=== PATIENT | male | born 1980 | race Caucasian/White ===

== ENCOUNTER 2017-10-22 18:50 | Emergency (ER) | payer SELFPAY | END 2017-10-22 22:40 | disposition home or self-care (01) | LOC: D.ER 18:50 | DX: S16.1XXA Strain of muscle, fascia and tendon at neck level, initial encounter (principal); V43.52XA Car driver injured in collision with other type car in traffic accident, initial encounter; Y93.89 Activity, other specified; Y92.410 Unspecified street and highway as the place of occurrence of the external cause; S39.012A Strain of muscle, fascia and tendon of lower back, initial encounter; S20.219A Contusion of unspecified front wall of thorax, initial encounter; I10 Essential (primary) hypertension; Z85.47 Personal history of malignant neoplasm of testis ==

== ENCOUNTER 2018-06-05 16:25 | Observation (INO) | payer OTHER ==
[~2018-06-05] VITALS: Ht 175.3 cm; Wt 76.2 kg
[2018-06-05 17:03] LABS: BASOPHILS 0.3 % (0-2); EOSINOPHILS 0.9 % (0-7); HEMATOCRIT 28.8 % (42.0-54.0); HEMOGLOBIN 10.3 g/dL (13.5-17.5); IMMATURE GRANULOCYTES 0.4 % (0-5); LYMPHOCYTES 17.2 % (15-50); MCH 31.7 pg (26.0-34.0); MCHC 35.8 g/dL (31.0-37.0); MCV 88.6 fL (80.0-100.0); MEAN PLATELET VOLUME 8.8 fL (7.4-10.4); MONOCYTES 7.9 % (2-11); NEUTROPHILS 73.3 % (40-80); PLATELET COUNT 264 10x3/uL (130-400); RBC 3.25 10x6/uL (4.20-6.10); RDW 12.8 % (11.5-14.5)
[2018-06-05 17:09] LABS: APPEARANCE CLEAR (CLEAR); BILIRUBIN NEGATIVE (NEGATIVE); COLOR YELLOW (YELLOW); GLUCOSE 1000 mg/dL (NEGATIVE); KETONE NEGATIVE (NEGATIVE); NITRITE NEGATIVE (NEGATIVE); PROTEIN NEGATIVE (NEGATIVE); UROBILINOGEN NORMAL (NORMAL)
[2018-06-05 17:21] LABS: ALBUMIN 3.3 g/dL (3.4-5.0); ALKALINE PHOSPHATASE 51 U/L (46-116); ALT (SGPT) 36 U/L (10-68); BILIRUBIN - TOTAL 0.44 mg/dL (0.2-1.3); CALC OSMOLALITY 274 mosm/kg (275-300); CALCIUM 8.2 mg/dL (8.5-10.1); CARBON DIOXIDE 27.9 mmol/L (21.0-32.0); CHLORIDE - SERUM 102 mmol/L (98-107); CREATININE - SERUM 1.1 mg/dL (0.6-1.3); GLUCOSE 116 mg/dL (74-106); POTASSIUM - SERUM 4.2 mmol/L (3.5-5.1); PROTEIN - SERUM 6.1 g/dL (6.4-8.2); SODIUM 134 mmol/L (136-145); UREA NITROGEN 29 mg/dL (7-18); eGFR NON AFRICAN AMERICAN 79 mL/min (90-120)
[2018-06-05 18:13] LABS: INR 1.05 (0.85-1.17); PROTIME 13.1 SECONDS (11.6-15.0)
[2018-06-05 20:56] VITALS: BP 121/56
[2018-06-05 22:14] VITALS: BP 113/72
[2018-06-05 23:52] LABS: HEMATOCRIT 26.4 % (42.0-54.0); HEMOGLOBIN 9.6 g/dL (13.5-17.5)
[2018-06-06] VITALS (10 sets, daily range): BP systolic 98–114; BP diastolic 55–69; Ht 175.3 cm; Wt 76.2 kg
[2018-06-06 06:26] LABS: BASOPHILS 0.2 % (0-2); EOSINOPHILS 2.1 % (0-7); HEMATOCRIT 27.5 % (42.0-54.0); HEMOGLOBIN 9.6 g/dL (13.5-17.5); IMMATURE GRANULOCYTES 0.5 % (0-5); LYMPHOCYTES 26.2 % (15-50); MCH 31.4 pg (26.0-34.0); MCHC 34.9 g/dL (31.0-37.0); MCV 89.9 fL (80.0-100.0); MEAN PLATELET VOLUME 9.1 fL (7.4-10.4); MONOCYTES 7.9 % (2-11); NEUTROPHILS 63.1 % (40-80); RBC 3.06 10x6/uL (4.20-6.10); RDW 13.1 % (11.5-14.5)
[2018-06-06 06:38] LABS: PLATELET COUNT 200 10x3/uL (130-400); WBC 6.1 10x3/uL (4.8-10.8)
[2018-06-06 06:41] LABS: CALC OSMOLALITY 280 mosm/kg (275-300); CALCIUM 7.5 mg/dL (8.5-10.1); CARBON DIOXIDE 28.6 mmol/L (21.0-32.0); CHLORIDE - SERUM 107 mmol/L (98-107); CREATININE - SERUM 0.9 mg/dL (0.6-1.3); GLUCOSE 96 mg/dL (74-106); POTASSIUM - SERUM 3.9 mmol/L (3.5-5.1); SODIUM 139 mmol/L (136-145); eGFR NON AFRICAN AMERICAN > 90 mL/min (90-120)
[2018-06-06 06:45] LABS: UREA NITROGEN 21 mg/dL (7-18)
[2018-06-06 07:57] LABS: INR 1.06 (0.85-1.17); PROTIME 13.2 SECONDS (11.6-15.0)
[2018-06-06 14:54] LABS: HEMATOCRIT 30.6 % (42.0-54.0); HEMOGLOBIN 10.6 g/dL (13.5-17.5)
[2018-06-06] MEDS ORDERED: OMEPRAZOLE20 M1 PO (15:34)
[2018-06-06] MEDS ORDERED: CARAFATE1 G/10 ML PO (15:35)
[2018-06-06] MEDS ORDERED: PEPCID40 MG PO (15:35)
== END 2018-06-06 16:55 | disposition home or self-care (01) ==
LOC: D.ER 16:25 → D.MS 22:05 → OBSVTIME 22:05 → D.MS 22:05
PROVIDERS: Emergency Medicine; Family Medicine; Internal Medicine Gastroenterology
DX: K29.81 Duodenitis with bleeding (principal); D62 Acute posthemorrhagic anemia; F17.200 Nicotine dependence, unspecified, uncomplicated; K26.9 Duodenal ulcer, unspecified as acute or chronic, without hemorrhage or perforation; K25.9 Gastric ulcer, unspecified as acute or chronic, without hemorrhage or perforation; K21.0 Gastro-esophageal reflux disease with esophagitis; E86.0 Dehydration

== ENCOUNTER → 2018-08-28 11:06 | Outpatient (CLI) | payer OTHER ==
[2018-06-06 09:52] VITALS: BMI 24.8
[~2018-08-28 11:06] MED LIST: CARAFATE1 G/10 ML PO; OMEPRAZOLE20 M1 PO; PEPCID40 MG PO
[2018-08-29 07:25] LABS: HCG-QUANTITATIVE(TUMOR MARKER) <1 mIU/mL (0-3)
[2018-08-29 11:16] LABS: ALPHA FETOPROTEIN -(TUMOR MRK) 9.3 ng/mL (0.0-8.3)
== END | disposition home or self-care (01) ==
LOC: D.LAB 11:06
PROVIDERS: Family Medicine
DX: C62.92 Malignant neoplasm of left testis, unspecified whether descended or undescended (principal)

== ENCOUNTER → 2018-09-01 10:30 | Outpatient (CLI) | payer OTHER ==
[2018-06-06 09:52] VITALS: BMI 24.8
== END | disposition home or self-care (01) ==
LOC: D.CT 10:30
DX: C62.92 Malignant neoplasm of left testis, unspecified whether descended or undescended (principal)

== ENCOUNTER → 2018-12-14 08:19 | Outpatient (CLI) | payer OTHER ==
[2018-06-06 09:52] VITALS: BMI 24.8
== END | disposition home or self-care (01) ==
LOC: D.US 08:00
PROVIDERS: ATTEND Family Medicine
DX: R60.0 Localized edema (principal)

== ENCOUNTER 2019-03-19 07:30 | Inpatient (IN) | payer OTHER ==
[2019-03-16 15:45] LABS: HEMATOCRIT 40.5 % (42.0-54.0); HEMOGLOBIN 13.9 g/dL (13.5-17.5); MCHC 34.3 g/dL (31.0-37.0); MCV 84.4 fL (80.0-100.0); MEAN PLATELET VOLUME 8.8 fL (7.4-10.4); RBC 4.8 10x6/uL (4.20-6.10); RDW 14.1 % (11.5-14.5); WBC 6.7 10x3/uL (4.8-10.8)
[2019-03-16 15:48] LABS: APPEARANCE CLEAR (CLEAR); BILIRUBIN NEGATIVE (NEGATIVE); COLOR YELLOW (YELLOW); GLUCOSE NEGATIVE (NEGATIVE); KETONE NEGATIVE (NEGATIVE); NITRITE NEGATIVE (NEGATIVE); PROTEIN NEGATIVE (NEGATIVE); UROBILINOGEN NORMAL (NORMAL)
[2019-03-16 16:01] LABS: PROTIME 12.7 SECONDS (11.6-15.0)
[2019-03-16 16:05] LABS: ALBUMIN 3.9 g/dL (3.4-5.0); ALKALINE PHOSPHATASE 69 U/L (46-116); ALT (SGPT) 33 U/L (10-68); BILIRUBIN - TOTAL 0.76 mg/dL (0.2-1.3); CALC OSMOLALITY 282 mosm/kg (275-300); CALCIUM 8.8 mg/dL (8.5-10.1); CARBON DIOXIDE 29.8 mmol/L (21.0-32.0); CHLORIDE - SERUM 104 mmol/L (98-107); GLUCOSE 98 mg/dL (74-106); POTASSIUM - SERUM 3.8 mmol/L (3.5-5.1); PROTEIN - SERUM 7.5 g/dL (6.4-8.2); SODIUM 142 mmol/L (136-145); UREA NITROGEN 13 mg/dL (7-18); eGFR NON AFRICAN AMERICAN 89 mL/min (90-120)
[~2019-03-19] VITALS: Ht 177.8 cm; Wt 81.5 kg
[2019-03-19] VITALS (13 sets, daily range): BP systolic 113–148; BP diastolic 59–90; BMI 24.4; BMI 25.8
--- NOTE | 2019-03-19 19:17 | NUR ---
PT ARRIVED TO CVICU ON BED WITH O.R STAFF AT BEDSIDE, REPORT RECEIVED, PT PLACED ON CVICU MONITORS, NSR ON CM, OTHER VSS, PT AAOx4, ANSWERES QUESTIONS, ON 3L/MIN HUMIDIFIED NC, LEFT IJ CVL C/D/I, STATED DISTAL PORT OF CVL IS OCCLUDED AND IS CAPPED OFF AND HAS CLAMP SECURED, OTHER LUMEN IS PATENT WITH MEDS INFUSING PER MAR/ORDERS, LEFT RADIAL ART-LINE AND CVP ZEROED ON CM DRSG C/DI, LEFT LATERAL CHEST CTx1 TO 20CM H20 SUCTION, NO LEAK NOTED, DRSG C/D/I, PT HAD DEL CASTILLO CATH REMOVED PRIOR TO COMING TO CVICU PER REQUEST, NO UOP NOTED SINCE REMOVAL, BILAT SCD AND VANESSA BANEGASE, THORACIC EPIDURAL PLACED IN O.R, DRSG C/D/I, WITH FENTANYL/ROPIVACAINE CONTINUOUS INFUSION SET AT 7ML/HR WITH WITH PRN 4ML q15MIN BOLUS PATIENT CONTROLED, WILL CONTINUE TO MONITOR
--- NOTE | 2019-03-19 19:21 | NUR ---
ABUNDIO REMOVED UPON COMPLETION OF CASE PER JAN HANSON
--- NOTE | 2019-03-19 20:00 | NUR ---
PT AND FAMILY AT BEDSIDE, UPDATE GIVEN, NO FURTHER AT THIS TIME VSS
[2019-03-20] VITALS (19 sets, daily range): BP systolic 99–133; BP diastolic 33–85; Ht 177.8 cm; Wt 81.5 kg
--- NOTE | 2019-03-20 | NUR ---
PT ASSISTED WITH REPOSITIONING TO USE URINAL, WARM BLANKET GIVEN TO PLACE OVER BLADDER AND WATER TURNED ON, PT UNABLE TO VOID AT THIS TIME, REPOSITIONED IN BED, VSS
--- NOTE | 2019-03-20 01:00 | NUR ---
PT ANXIOUS ABOUT NOT VOIDING, PT EXPRESSED THOUGHTS ABOUT DEL CASTILLO CATH IF CONTINUES TO HAVE DIFICULTY VOIDING BUT WOULD LIKE TO CONTINUE TRYING URINAL, QUESTIONS AND CONCERNS ANSWERED, WARM WASH TOWEL GIVEN PER REQUEST, NO FURTHER NEEDS AT THIS TIME, VSS
--- NOTE | 2019-03-20 01:30 | NUR ---
PT ABLE TO VOID IN URINAL, SATES HE FEELS RELEIF FROM BLADDER PRESSURE, TCDB COMPLETED, I/S 2500ML, VSS
--- NOTE | 2019-03-20 03:00 | NUR ---
REASSESSMENT COMPLETE SEE FLOW SHEET, NO ACUTE CHANGES NOTED, PT AAOx4, REPOSITIONED FOR COMFORT, NSR ON CM, OTHER VSS, WILL CONTINUE TO MONITOR
[2019-03-20 06:42] LABS: HEMATOCRIT 37.2 % (42.0-54.0); HEMOGLOBIN 12.7 g/dL (13.5-17.5); MCH 28.7 pg (26.0-34.0); MCHC 34.1 g/dL (31.0-37.0); MCV 84.2 fL (80.0-100.0); MEAN PLATELET VOLUME 8.9 fL (7.4-10.4); RBC 4.42 10x6/uL (4.20-6.10); RDW 14.2 % (11.5-14.5); WBC 12.3 10x3/uL (4.8-10.8)
[2019-03-20 06:45] LABS: ALBUMIN 3.4 g/dL (3.4-5.0); ALKALINE PHOSPHATASE 56 U/L (46-116); ALT (SGPT) 33 U/L (10-68); CALC OSMOLALITY 280 mosm/kg (275-300); CALCIUM 8.4 mg/dL (8.5-10.1); CARBON DIOXIDE 24.3 mmol/L (21.0-32.0); CHLORIDE - SERUM 104 mmol/L (98-107); GLUCOSE 120 mg/dL (74-106); PROTEIN - SERUM 6.8 g/dL (6.4-8.2); SODIUM 140 mmol/L (136-145); UREA NITROGEN 16 mg/dL (7-18); eGFR NON AFRICAN AMERICAN 89 mL/min (90-120)
--- NOTE | 2019-03-20 07:37 | NUR ---
CHG BATH WITH COMPLETE LINEN CHANGE WITH YELLOW GOWN, REPOSITIONED FOR COMFORT, VSS
--- NOTE | 2019-03-20 08:27 | NUR ---
DR BRAY AT THE PTS BEDSIDE. N.O. TO PULL OUT CHAR. DR BRAY PLACED THE CT TO WATER SEAL. ORDERS FOR CT. PT A LINE DC'D WITH NO HEMATOMA NOTED. DRESSING APPLIED. PT WENT DOWN FOR CT ON THE MONITOR. VSS AT THIS TIME.
--- NOTE | 2019-03-20 09:28 | NUR ---
PT COMPLAINED OF URINARY RETENTION. UNABLE TO VOID IN THE URINAL. PT ASSISTED TO THE BEDSIDE COMMODE AND HAD A SMALL BM AND VOIDED 380 ML OF CLEAR, YELLOW URINE. PT ASSISTED TO THE BEDSIDE CHAIR. WILL CONT POC.
--- NOTE | 2019-03-20 09:53 | NUR ---
TONI AYALA AT THE PTS BEDSIDE. SMALL PNUMOTHORAX NOTED. SHE PUT THE PT BACK ON SUCTION AND REPEAT CXR AT 1200.
--- NOTE | 2019-03-20 10:42 | NUR ---
DR BRAY IN THE PTS ROOM. UPDATED ON THE CHEST CT. OK TO PULL CENTRAL LINE.
--- NOTE | 2019-03-20 11:26 | OP ---
PATIENT NAME: DOLORES BE MEDICAL RECORD: [id number] :80 LOCATION:[id number] ADMISSION DATE:03/19/19 SURGEON: KEVIN BRAY MD DATE OF OPERATION: 03/19/2019 SURGEON: Kevin Bray MD ROTARY SHEAR CUTTER: Abimael Smith. PROCEDURE PERFORMED: 1. Right video-assisted thoracoscopic surgery. 2. Right thoracotomy, diagnostic. 3. Biopsy of intraparenchymal lymph node. 4. Bronchoscopy procedure. PREOPERATIVE DIAGNOSIS: Enlarging right lung mass. POSTOPERATIVE DIAGNOSIS: Benign lymph node. ANESTHESIA: General endotracheal anesthesia. ESTIMATED BLOOD LOSS: Minimal. COMPLICATIONS: None. SPECIMENS: Lymph node. CONDITION: Stable. DISPOSITION: ICU. OPERATIVE FINDINGS: 1. Thoracoscopy performed with complete fissures, but no evidence of scarring or retraction of the pleura to alert any site of intraparenchymal mass. 2. Small anterior thoracotomy, lung; upper, middle, and lower lobes sequentially grasped and palpated with 1 small lymph node intraparenchymally removed carefully with electrocautery and hemostasis insured sent and returned benign. 3. The thoracotomy was enlarged to allow direct hand palpation of the entire lung and careful palpation was performed for over 45 minutes with no palpable intraparenchymal lung masses in the patient with complete lung fissures and normal appearing lung parenchyma. 4. Negative bronchoscopy. PROCEDURE INDICATION: Enlarging lung mass with history of testicular cancer. DESCRIPTION OF PROCEDURE: The patient was brought to the operating suite. General anesthesia was obtained with a double lumen tube and the patient was placed in the left lateral decubitus position with appropriate padding including axillary roll. Right chest incision was made just behind the tip of the scapula and the scope was introduced visualizing the chest, then a second working port was made anteriorly at about the anterior axillary line and the long clamp was introduced and the lung was explored from the apex down the major fissure looking for the mass, which was in the major fissure in the upper lobe or just in the middle lobe and all the way down to the diaphragm. The lower lobe was also inspected, but no evidence of tumor was visualized. Therefore, the OPERATIVE REPORT [id number] DOLORES BE anterior incision was enlarged to about 10 cm under direct visualization. The lung was grasped and directly palpated with fingers. First the anterior portion of the upper lobe and the entire middle lobe and then the lower lobe along the diaphragmatic surface with one 5-mm lymph node intraparenchymally, carefully grasped and removed with the Bovie and hemostasis ensured. Once this returned benign, the anterior working site was doubled and a section of rib was removed. Direct palpation inside the parenchyma was performed and sequential palpation of each lobe from top to bottom, posterior to anteriorly was performed with no palpable masses, and no abnormalities noted. Lung was again grasped and fully visualized in all areas and then the area was irrigated. A chest tube was placed through the anterior working port. The wound was closed with #2 muscle layers, subcutaneous subcuticular. The posterior working port was closed with #1 muscle layer, subcutaneous and subcuticular. Lung was reinflated. The patient extubated to the CV ICU stable. TRANSINT:[id number] Voice Confirmation ID: [id number] DOCUMENT ID: [id number] KEVIN BRAY MD at 1126 CC: MARYSE COPE DO, DONATO GARDNER and BATOOL HOUSE MD [id number] DICTATION DATE: 03/19/19 1840 CENTRIFUGAL MACHINE TENDER: 03/19/19 2207 ADM IN [facility] [address] [place] [address]
--- NOTE | 2019-03-20 11:46 | NUR ---
IGNITION EXPERT CHANGED EPIDURAL BAG.
--- NOTE | 2019-03-20 12:55 | NUR ---
LEFT CVL LINE PULLED PER DR BRAY'S ORDERS. DRESSING APPLIED. PT TOLERATED WELL. WILL CONT POC.
--- NOTE | 2019-03-20 15:44 | NUR ---
ASSISTED THE PT WITH AMBULATING TO THE BATHROOM. NORMAL STEADY GAIT NOTED. PT HAD A SMALL BM BUT STATED IT WAS MAINLY GAS. PT STATED HE HAD ANOTHER LARGE VOID. UNABLE TO MEASURE THE AMOUNT OF VOID.
--- NOTE | 2019-03-20 17:24 | NUR ---
PT ASSISTED TO THE BR WHERE HE VOIDED WITH NO ISSUES. ASSISTED BACK TO HIS BEDSIDE CHAIR. VSS. MEAL TRAY PROVIDED FOR THE PT. PT CONT TO USE IS 10X'S/H PULLING ABOUT 3500. VERY STRONG COUGH NOTED. CALL LIGHT IN REACH. WILL CONT POC.
--- NOTE | 2019-03-20 19:00 | NUR ---
BEDSIDE SHIFT REPORT GIVEN BY DEPARTING RN. PT LAYING IN BED WATCHING TV. AAOX4. DENIES ANY PAIN AT THIS TIME. HS SNACK PROVIDED. FRESH ICE WATER PROVIDED. RT WRIST PIV NOTED AND INFUSING MD ORDERED MEDS PATENTLY. ZINACEF COMPLETE AT THIS TIME. RT LATERAL CHEST TUBE NOTED WITH BLOODY DRAINAGE, HOOKED TO 20 CM SUCTION. RLL CRACKLES HEARD. FREQUENT COUGHING NOTED WITH THICK DIALLO SECRETIONS. EPIDURAL NOTED, INSERTION SITE RIGHT UPPER BACK C/D/I. ASSESSMENT COMPLETE. NO SS OF DISTRESS. SAFETY MEASURES IN PLACE. CBIR.
--- NOTE | 2019-03-20 21:00 | NUR ---
USED CALL LIGHT TO ALERT NURSE. OOB TO BATHROOM WITH STANDBY ASSIST. 1 VOID NOTED. UPON ENTERING THE BED, PT C/O SHARP PAIN 10/[address] LOCATION. DRESSING REMAINS C/D/I. LUNG SOUNDS SAME PREVIOUS ASSESSMENT. GETTING STILL AND LAYING DOWN PAIN LESSONED TO 4/10. WILL CONTINUE TO MONITOR.
--- NOTE | 2019-03-20 21:49 | NUR ---
USED CALL LIGHT TO ALERT NURSE. REQUESTS TO SIT IN CHAIR TO HELP WITH PAIN. ACCOMODATED. PAIN LESSONED TO 0/10.
--- NOTE | 2019-03-20 23:50 | NUR ---
REASSESSMENT COMPLETE. PT OOC TO BATHROOM. 1 VOID NOTED. EXTREME PAIN NOTED IN CT SITE. UNABLE TO CONTROL PAIN WITH LEAD SHOP OPERATOR PUMP AT THIS TIME.
[2019-03-21] VITALS (23 sets, daily range): BP systolic 99–136; BP diastolic 51–83
--- NOTE | 2019-03-21 00:59 | NUR ---
YELLING OUT IN PAIN. PT C/O CT PAIN 07/26. ELECTRICIAN APPRENTICE BUTTON PRESSED. PAIN LESSONED. ELECTRICIAN APPRENTICE RESOVIOR 34 ML. WILL RUN OUT. ANESTHESIA PAGED.
--- NOTE | 2019-03-21 01:07 | NUR ---
LOUISE TALLEY RETURNED PAGE. SAID TO CALL DR. COSBY TO SEE IF HE WANTS TO KEEP THE EPIDURAL IN PLACE. 0113 DR. COSBY PAGED AND RETURNED CALL. NO NEW ORDERS. WILL BE IN TO CHANGE PLASTERING CONTRACTOR MEDICATION BAG.
--- NOTE | 2019-03-21 01:46 | NUR ---
DR. COSBY AT BEDSIDE TO CHANGE BOX LIDDER MEDICATION BAG. CHANGED MEDICATION DOSAGE. 8 ML CONT. 4 ML BOLUS Q15 MIN. SEE MD NOTES FOR FULL DETAILS.
--- NOTE | 2019-03-21 03:47 | NUR ---
REASSESSMENT COMPLETE. NO NEW CHANGES NOTED. VSS. OOB IN CHAIR. NO SS OF DISTRESS. SAFETY MEASURES IN PLACE. CBIR.
--- NOTE | 2019-03-21 04:52 | NUR ---
ASSISTED TO BATHROOM. 1 VOID AND 1 SMALL BM NOTED. TOLERATED WELL.
--- NOTE | 2019-03-21 05:07 | NUR ---
PHONED DR. BRAY TO INFORM OF CT OUTPUT AND SUBQ EMPHYSEMA. ORDERS ARE FOR STAT PORTABLE XRAY AND TO KEEP CT ON SUCTION, TO NOT PLACE ON WATER SEAL. ORDERS RECEIVED, VERIFIED, AND READ BACK.
--- NOTE | 2019-03-21 05:30 | NUR ---
RADIOLOGY AT BEDSIDE
[2019-03-21 05:57] LABS: HEMATOCRIT 34.4 % (42.0-54.0); HEMOGLOBIN 11.5 g/dL (13.5-17.5); MCH 28.5 pg (26.0-34.0); MCHC 33.4 g/dL (31.0-37.0); MCV 85.4 fL (80.0-100.0); MEAN PLATELET VOLUME 8.5 fL (7.4-10.4); RBC 4.03 10x6/uL (4.20-6.10); RDW 14.5 % (11.5-14.5)
[2019-03-21 06:19] LABS: ALBUMIN 3.2 g/dL (3.4-5.0); ALKALINE PHOSPHATASE 50 U/L (46-116); ALT (SGPT) 26 U/L (10-68); BILIRUBIN - TOTAL 1.29 mg/dL (0.2-1.3); CALCIUM 8.2 mg/dL (8.5-10.1); CARBON DIOXIDE 29.3 mmol/L (21.0-32.0); CHLORIDE - SERUM 103 mmol/L (98-107); GLUCOSE 110 mg/dL (74-106); PROTEIN - SERUM 6.5 g/dL (6.4-8.2); SODIUM 141 mmol/L (136-145); eGFR NON AFRICAN AMERICAN 89 mL/min (90-120)
[2019-03-21 06:20] LABS: CALC OSMOLALITY 280 mosm/kg (275-300); POTASSIUM - SERUM 3.3 mmol/L (3.5-5.1); UREA NITROGEN 9 mg/dL (7-18)
[2019-03-21 06:23] LABS: WBC 8.1 10x3/uL (4.8-10.8)
--- NOTE | 2019-03-21 07:00 | NUR ---
REC'D REPORT AND RESUMED CARE, 2L NC IN USE, VSS, C/O PAIN 03/26, EPIDURAL WIT WOOL WASHER IN USE, DRESSING TO BACK CDI, RIGHT LATERAL CT IN PLACE WITH BLOODY DRAINAGE TO CANISTER, B/L VANESSA'S & SCD'S IN USE, ASSESSMENT COMPLETED PER FLOWSHEET, CALL LIGHT IN REACH, NO NEEDS AT THIS TIME
--- NOTE | 2019-03-21 07:30 | NUR ---
DR BRAY AT BEDSIDE FOR EVAL NEW ORDERS GIVEN
--- NOTE | 2019-03-21 07:45 | NUR ---
BREAKFAST TRAY TO CHAIRSIDE, INDEPENDENT WITH SET UP AND EATING
--- NOTE | 2019-03-21 08:30 | NUR ---
OOC TO BATHROOM WITH MINIMAL ASSIST, TOLERATED TRANSFER WITHOUT DIFFICULTY
--- NOTE | 2019-03-21 09:50 | NUR ---
K+ LEVEL 3.3, TREATMENT K DUR 20 MEQ GIVEN PER ORDER
--- NOTE | 2019-03-21 11:00 | NUR ---
CALLED TO ROOM, OOC TO BATHROOM, TOLERATED TRANSFER WITHOUT OUT DIFFICULTY, NO OTHER ACUTE CHANGE FROM PREVIOUS ASSESSMENT
--- NOTE | 2019-03-21 12:30 | NUR ---
CT REMOVED BY DR BRAY, TOLERATED WITHOUT DIFFICULTY, GUAZE AND OPSITE DRESSING PLACED
--- NOTE | 2019-03-21 13:08 | MORECARE ---
CASE MANAGEMENT DISCHARGE SUMMARY PATIENT: DOLORES BE UNIT: [id number] ADM DATE: 03/19/19 AGE: 38 : 80 SEX: M [facility] AUTHOR: ROBLES,DOC PHYSICIAN: REFERRING PHYSICIAN: COLLETTE BRAY MD DATE OF SERVICE: 03/21/19 Discharge Plan Patient Name: DOLORES BE Facility: [facility]:[place] : 1980 Planned Disposition: Home Anticipated Discharge Date: Discharge Date: Expected LOS: Initial Reviewer: [email or web address] Initial Review Date: 03/19/2019 Generated: 03/21/19 2:08 pm Comments DCP- Discharge Planning Updated by [email or web address]: Keily Arellano on 03/21/19 12:[address] Patient Name: DOLORES BE Admission Status: Elective Accout number: [id number] Admission Date: 03-19-2019 : 1980 Admission Diagnosis:OTHER NONSPECIFIC ABNORMAL FINDING OF LUNG FIELD Attending: COLLETTE BRAY Current LOS: 2 Anticipated DC Date: Planned Disposition: Home Primary Insurance: [employer]IVATE [employer] Discharge Planning Comments: CM met with patient to complete initial dc planning assessment. CM educated patient on the CM role and verbal consent given by patient to complete assessment. CM verified patient's address, phone number, and emergency contact phone numbers. Patient lives at home with his and reports he was independent in his care prior to admission. At discharge patient plans to return home with his and feels this is a safe discharge. CM discussed availability of home health, rehab services, and medical equipment. Patient denied known discharge needs at this time. Patient reports his will transport him home at time of discharge. CM will continue to follow and will assist as needed with dc plans/needs Microwave Technician: Keily Arellano RN, [facility] DCPIA - Discharge Planning Initial Assessment Updated by [email or web address]: Keily Arellano on 03/21/19 1:07 pm * Is the patient Alert and Oriented? Yes * How many steps to enter\exit or inside your home? one * PCP Dr. Bal - Near the [facility] * Pharmacy [facility] 7 * Preadmission Environment Home with Family * ADLs Independent * Equipment None * List name and contact numbers for known caregivers / representatives who currently or will assist patient after discharge: Mae Be - spouse - [phone] * Verbal permission to speak to the caregivers and representatives has been obtained from the patient. Yes * Community resources currently utilized None * Additional services required to return to the preadmission environment? No * Can the patient safely return to the preadmission environment? Yes * Has this patient been hospitalized within the prior 30 days at any hospital? No Patient Name: DOLORES BE Page [phone] at 1308 All edits/amendments must be made on the electronic document DICTATION DATE: 03/21/19 1308 SUPPORT TECHNICIAN: UMER 03/21/19 1308 RPT#: [id number] DC DATE: STATUS: ADM IN [facility] [address] [place] [address] END OF REPORT
--- NOTE | 2019-03-21 15:00 | NUR ---
CALLED TO ROOM, STAND BY ASSIST TO BATHROOM, NO OTHER ACUTE CHANGE FROM PREVIOUS ASSESSMENT
--- NOTE | 2019-03-21 16:45 | NUR ---
DINNER TRAY TO BEDSIDE, INDEPENDENT WITH SET UP AND EATING
--- NOTE | 2019-03-21 18:05 | NUR ---
CALLED TO ROOM, STAND BY ASSIST FOR AMBULATION TO BATHROOM, TOLERATED WITHOUT DIFFICULTY
--- NOTE | 2019-03-21 19:21 | NUR ---
BEDSIDE SHIFT REPORT GIVEN BY DEPARTING RN. PT OOB IN CHAIR ASLEEP. AAOX4. RT WRIST PIV SALINE LOCKED PER MD ORDERS. CRACKLES HEARD IN BASE OF RT LUNG. FREQUENT COUGHING NOTED FROM PT WITH THICK DIALLO MUCOUS EXPELLED. VSS. CT INCISION DRESSING INTACT. BLISTERS NOTED AROUND ADHESIVE. PT SCRATCHING AROUND BANDAGES. WILL DOCUMENT ON SKIN ASSESSMENT. ASSESSMENT COMPLETE. SEE FLOWSHEET FOR FULL DETAILS. SAFETY MEASURES IN PLACE. CBIR.
--- NOTE | 2019-03-21 19:58 | NUR ---
BATH GIVEN USING HCG SOLUTION AND WATER. EKG LEADS CHANGED. LINENS CHANGED. TOOTH BRUSH AND TOOTH PASTE PROVIDED. GOWN CHANGED. PT IN BED. TOLERATED WELL.
--- NOTE | 2019-03-21 20:28 | NUR ---
DR. BRAY NOTIFIED OF BLISTERS AND ITCHING. ORDERS RECEIVED, VERIFIED, AND READ BACK. REQUESTED NURSE INFORM ANESTHESIA REGARDING ITCHING TO RULE OUT COMPLICATIONS WITH EPIDURAL. SEE MAR FOR NEW ORDER DETAILS.
--- NOTE | 2019-03-21 20:36 | NUR ---
DR. SHABAZZ NOTIFIED REGARDING ITCHING. NO NEW ORDERS.
--- NOTE | 2019-03-21 21:14 | NUR ---
HS MEDS GIVEN WITH BED TIME SNACK.
--- NOTE | 2019-03-21 21:41 | NUR ---
PT USED CALL RIVERS TO ALERT NURSE. REQUESTS TO GET BACK IN CHAIR FROM BED. STATING "I JUST CAN'T DO IT. I JUST CAN'T STAY LAY OR SIT IN THE BED. IT HURTS TOO MUCH." PAIN RELEIVED ONCE STANDING AND RECLINING IN CHAIR.
--- NOTE | 2019-03-21 23:16 | NUR ---
CALLED TO ROOM USING CALL RIVERS SYSTEM. ASSISTED TO BATHROOM. REQUESTED ICE WATER. ACCOMMODATED.
[2019-03-22] VITALS (22 sets, daily range): BP systolic 115–151; BP diastolic 60–94
--- NOTE | 2019-03-22 01:36 | NUR ---
REASSESSMENT COMPLETE. PT SITTING IN CHAIR ASLEEP. NO SS OF DISTRESS. USING CELL PHONE ALARM TO WAKE UP AND PRESS LEATHER TOGGLER BUTTON TO "STAY AHEAD OF PAIN". NO NEW CHANGES IN PT CONDITION.
[2019-03-22 04:02] LABS: HEMOGLOBIN 11.2 g/dL (13.5-17.5); MCH 29.1 pg (26.0-34.0); MCHC 33.9 g/dL (31.0-37.0); MCV 85.7 fL (80.0-100.0); MEAN PLATELET VOLUME 8.7 fL (7.4-10.4); RBC 3.85 10x6/uL (4.20-6.10); RDW 14.6 % (11.5-14.5); WBC 6.3 10x3/uL (4.8-10.8)
[2019-03-22 04:20] LABS: ALKALINE PHOSPHATASE 63 U/L (46-116); ALT (SGPT) 39 U/L (10-68); BILIRUBIN - TOTAL 0.94 mg/dL (0.2-1.3); CALC OSMOLALITY 278 mosm/kg (275-300); CALCIUM 8.6 mg/dL (8.5-10.1); CARBON DIOXIDE 28.6 mmol/L (21.0-32.0); CHLORIDE - SERUM 104 mmol/L (98-107); CREATININE - SERUM 0.8 mg/dL (0.6-1.3); GLUCOSE 106 mg/dL (74-106); POTASSIUM - SERUM 3.9 mmol/L (3.5-5.1); PROTEIN - SERUM 6.6 g/dL (6.4-8.2); SODIUM 141 mmol/L (136-145); UREA NITROGEN 8 mg/dL (7-18); eGFR NON AFRICAN AMERICAN > 90 mL/min (90-120)
--- NOTE | 2019-03-22 04:20 | NUR ---
GONE TO RADIOLIGY FOR PA AND LAT
--- NOTE | 2019-03-22 04:33 | NUR ---
BACK FROM RADIOLOGY. TOLERATED WELL.
--- NOTE | 2019-03-22 07:00 | NUR ---
REC'D REPORT AND RESUMED CARE, SITTING UP IN CHAIR WITH NO SIGN OF DISTRESS, VSS, C/O PAIN 03/26 WHEN COUGHING, ASSESSMENT COMPLETED PER FLOWSHEET, CALL LIGHT IN REACH VOICES NO NEEDS AT THIS TIME
[2019-03-22] MEDS ORDERED: PERCOCET 10-321 EAC1 PO (08:14)
--- NOTE | 2019-03-22 09:00 | NUR ---
MORNING MEDS GIVEN PER DEC FLOWSHEET, CONTINUES ON EPIDURAL, STATES HE HAS NOT GIVEN HIMSELF A BOLUS WILL TRY NOT TO USE BECAUSE EPIDURAL WILL BE TAKEN OUT TODAY AND HE WANTS TO SEE HOW OTHER MEDS WILL EFFECT HIM WHEN HE IS COUGHING, I ENCOURAGED HIM TO STAY AHEAD OF HIS PAIN, HE THOUGHT HE WOULD BE OK
--- NOTE | 2019-03-22 10:05 | NUR ---
DR COSBY SPOKE WITH PATIENT RE USING EPIDURAL ONE MORE BEFORE REMOVAL AND PATIENT DEFERRED, STATED HE WAS OK AND DID NOT NEED TO GIVE HIMSELF MEDS AT THIS TIME
--- NOTE | 2019-03-22 10:10 | NUR ---
EPIDURAL DC'D WITH CATH TIP INTACT BY DR COSBY, TOLERATED WITHOUT DIFFFICULTY
--- NOTE | 2019-03-22 10:40 | NUR ---
CALLED TO ROOM, PERCOCET 10/325 PO GIVEN PER MAR ORDER FOR PAIN -04/25
--- NOTE | 2019-03-22 15:00 | NUR ---
CONTINUES TO SIT UP IN CHAIR STATES BED IS UNCOMFORTABLE, CALL LIGHT IN REACH, NO ACUTE CHANGE FROM PREVIOUS, VSS
--- NOTE | 2019-03-22 17:33 | NUR ---
CALLED TO ROOM C/O PAIN 06/26 IN LATERAL CHEST, PERCOCET 10MG/325MG GIVEN PER MAR ORDER
--- NOTE | 2019-03-22 19:04 | NUR ---
BEDSIDE SHIFT REPORT GIVEN BY DEPARTING RN. PT SITTING UP IN CHAIR. AAOX4. C/O INCISIONAL PAIN RATING A 10. RT FA IV NOTED AND CHECKED FOR PATENCY. RT LAT CT INCISION NUTRITION TECHNICIAN. BLISTERS NOTED FROM PREVIOUS TAPE ON ABD AND RT LAT SIDE. VSS. ASSESSMENT COMPLETE. SEE FLOWSHEET FOR DETAILS. SAFETY MEASURES IN PLACE. FRESH ICE WATER PROVIDED. CBIR.
--- NOTE | 2019-03-22 20:14 | NUR ---
COMPLETE BED BATH GIVEN USING HCG WIPES. LINENS CHANGED. ORAL CARE COMPLETE. TOLERATED WELL.
--- NOTE | 2019-03-22 21:11 | NUR ---
HS MEDS GIVEN. PRN PAIN MED GIVEN. 7/10 ON PAIN SCALE. NO SS OF DISTRESS.
--- NOTE | 2019-03-22 23:16 | NUR ---
REASSESSMENT COMPLETE. PT LAYING IN BED ASLEEP SHOWING NO SS OF DISTRESS. PAIN RATING A 2/10. NO CHANGES NOTED IN PT CONDITION. VSS. REMAINS IN CHAIR. CBIR.
[2019-03-23] VITALS (9 sets, daily range): BP systolic 104–124; BP diastolic 62–78
--- NOTE | 2019-03-23 01:19 | NUR ---
PRN PAIN MED GIVEN. SEE MAR FOR DETAILS.
--- NOTE | 2019-03-23 03:36 | NUR ---
REASSESSMENT COMPLETE. NO NEW CHANGES NOTED IN PT CONDITION. VSS. C/O INCISIONAL PAIN 11/26. FRESH ICE WATER PROVIDED. SAFETY MEASURES IN PLACE. CBIR
--- NOTE | 2019-03-23 05:43 | NUR ---
PRN PAIN MED GIVEN. SEE MAR FOR DETAILS.
--- NOTE | 2019-03-23 09:35 | NUR ---
SALINE LOCK IN R FOREARM DC'D. REVIEWED DISCHARGE INSTRUCTIONS.
--- NOTE | 2019-03-23 10:20 | NUR ---
DISCHARGED HOME. EXCORTED TO VEHICLE VIA WC.
--- NOTE | 2019-03-23 22:20 | MORECARE ---
CASE MANAGEMENT DISCHARGE SUMMARY PATIENT: DOLORES BE UNIT: [id number] ADM DATE: 03/19/19 AGE: 38 : [birth year] SEX: M [facility] AUTHOR: ROBLES,DOC PHYSICIAN: REFERRING PHYSICIAN: COLLETTE BRAY MD DATE OF SERVICE: 03/23/19 Discharge Plan Patient Name: DOLORES BE Facility: [facility]:[place] : 1980 Planned Disposition: Home Anticipated Discharge Date: Discharge Date: 03/23/2019 Expected LOS: Initial Reviewer: [email or web address] Initial Review Date: 03/19/2019 Generated: 03/23/19 11:20 pm Comments DCP- Discharge Planning Updated by [email or web address]: Keily Arellano on 03/21/19 12:[address] Patient Name: DOLORES BE Admission Status: Elective Accout number: [id number] Admission Date: 03-19-2019 : 1980 Admission Diagnosis:OTHER NONSPECIFIC ABNORMAL FINDING OF LUNG FIELD Attending: COLLETTE BRAY Current LOS: 2 Anticipated DC Date: Planned Disposition: Home Primary Insurance: [employer] Discharge Planning Comments: CM met with patient to complete initial dc planning assessment. CM educated patient on the CM role and verbal consent given by patient to complete assessment. CM verified patient's address, phone number, and emergency contact phone numbers. Patient lives at home with his and reports he was independent in his care prior to admission. At discharge patient plans to return home with his and feels this is a safe discharge. CM discussed availability of home health, rehab services, and medical equipment. Patient denied known discharge needs at this time. Patient reports his will transport him home at time of discharge. CM will continue to follow and will assist as needed with dc plans/needs Petroleum Geologist: Keily Arellano RN, [facility] DCPIA - Discharge Planning Initial Assessment Updated by [email or web address]: Keily Arellano on 03/21/19 1:07 pm * Is the patient Alert and Oriented? Yes * How many steps to enter\exit or inside your home? one * PCP Dr. Bal - Near the [facility] * Pharmacy [facility] 7 * Preadmission Environment Home with Family * ADLs Independent * Equipment None * List name and contact numbers for known caregivers / representatives who currently or will assist patient after discharge: Mae Be - spouse - [phone] * Verbal permission to speak to the caregivers and representatives has been obtained from the patient. Yes * Community resources currently utilized None * Additional services required to return to the preadmission environment? No * Can the patient safely return to the preadmission environment? Yes * Has this patient been hospitalized within the prior 30 days at any hospital? No Last DP export: 03/21/19 12:08 pm Patient Name: DOLORES BE Page 22609 at 2220 All edits/amendments must be made on the electronic document DICTATION DATE: 03/23/192219 TUBE LASER OPERATOR: UMER 03/23/192219 RPT#: [id number] DC DATE:03/23/19 STATUS: DIS IN [facility] [address] [place] [address] END OF REPORT
== END 2019-03-23 10:20 | disposition home or self-care (01) | DRG 167 ==
LOC: D.SDCHOLD 07:30 → D.CVICU 10:00 → D.SDCHOLD 10:00 → D.CVICU 13:08
PROVIDERS: ADMIT Thoracic Surgery (Cardiothoracic Vascular Surgery); ATTEND Thoracic Surgery (Cardiothoracic Vascular Surgery)
PROC: 07B70ZX Excision of Thorax Lymphatic, Open Approach, Diagnostic (ICD-10-PCS; principal; 2019-03-19 07:30)
PROC: 0BJ08ZZ Inspection of Tracheobronchial Tree, Via Natural or Artificial Opening Endoscopic (ICD-10-PCS; 2019-03-19 07:30)
DX: R91.8 Other nonspecific abnormal finding of lung field (principal); J93.9 Pneumothorax, unspecified; Z85.47 Personal history of malignant neoplasm of testis

== ENCOUNTER → 2019-04-02 16:04 | Outpatient (CLI) | payer OTHER ==
[2019-03-20 10:51] VITALS: BMI 25.7
[~2019-04-02 16:04] MED LIST changes: +PERCOCET 10-321 EAC1 PO
== END | disposition home or self-care (01) ==
LOC: D.RAD 16:04
PROVIDERS: ATTEND Orthopaedic Surgery
DX: Z98.890 Other specified postprocedural states (principal)

== ENCOUNTER → 2020-04-30 09:45 | Outpatient (CLI) | payer BC ==
[2019-03-20 10:51] VITALS: BMI 25.7
== END | disposition home or self-care (01) ==
LOC: D.MRI 09:45
PROVIDERS: ATTEND Orthopaedic Surgery
DX: M54.12 Radiculopathy, cervical region (principal)